=== PATIENT | female | born 1955 | race African-American/Black ===

== ENCOUNTER 2018-03-07 13:35 | Outpatient (CLI) | payer MEDICARE ==
--- NOTE | 2018-03-07 15:09 | RAD ---
LEFT KNEE 3 VIEWS: Date: 03/07/18 HISTORY: Left knee pain. FINDINGS: There is complete loss of joint space at the lateral compartment and patellofemoral compartment, and mild joint space loss at the medial compartment. Articular surface irregularity of the lateral compar tment. Prominent tricompartmental osteophytosis. Small amount of fluid distends the suprapatellar bur sa. No acute fracture or dislocation. IMPRESSION: Severe osteoarthritis left knee with small joint effusion. POS: [facility]
--- NOTE | 2018-03-07 15:10 | RAD ---
RIGHT HIP 2 VIEWS: Date: 03/07/18 HISTORY: Right hip pain. FINDINGS: Mild joint space narrowing, osteophytosis, and subchondral sclerosis. Enthesophytes from the greater trochanter. No acute fracture or dislocation. IMPRESSION: Mild osteoarthritic changes right hip. POS: [facility]
--- NOTE | 2018-03-07 15:18 | RAD ---
AP PELVIS 1 VIEW: Date: 03/07/18 HISTORY: Pelvic pain. FINDINGS: Degenerative changes of the hips, left greater than right, and lumbar spine are apparent. Sacral ala and pelvic rings are intact. Phleboliths project over the pelvis. 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 No acute osseous abnormalities are demonstrated. POS: [facility]
== END 2018-03-07 13:36 | disposition home or self-care (01) ==
LOC: SCSRAD 13:35
PROVIDERS: ATTEND Family Medicine
DX: M16.11 Unilateral primary osteoarthritis, right hip (principal); M17.12 Unilateral primary osteoarthritis, left knee; M47.896 Other spondylosis, lumbar region; M25.462 Effusion, left knee
CPT/HCPCS: 72170

== ENCOUNTER 2018-03-08 13:45 | Outpatient (CLI) | payer MEDICARE ==
--- NOTE | 2018-03-08 14:38 | ULT ---
Technique: Multiple longitudinal and transverse images of the left lower extremity venous system is o btained using a multihertz linear array transducer. Real-time, color flow, and spectral waveform dopp ler analysis was used to evaluate the left lower extremity. FINDINGS: No evidence of acute or old clot seen in the left common femoral, superficial femoral, femoral profun da, popliteal, post trifurcation veins, posterior tibial veins, or left greater saphenous vein. IMPRESSION: No evidence of left lower extremity deep venous thrombosis. POS: [facility]
== END 2018-03-08 13:46 | disposition home or self-care (01) ==
LOC: ULT 13:45
PROVIDERS: ATTEND Family Medicine
DX: M79.89 Other specified soft tissue disorders (principal); R79.1 Abnormal coagulation profile

== ENCOUNTER 2018-12-14 15:35 | Outpatient (CLI) | payer MEDICARE ==
--- NOTE | 2018-12-14 17:14 | ULT ---
VENOUS DUPLEX SONOGRAM RIGHT LOWER EXTREMITY 12/14/18 HISTORY: Right leg pain and edema. FINDINGS: The right common femoral vein and greater saphenous junction were evaluated along with the femoral, d eep femoral, popliteal, and posterior tibial veins. There is good color and spectral doppler flow, co mpression, and augmentation. IMPRESSION: No sonographic evidence of DVT within the right lower extremity. POS: [facility]
--- NOTE | 2018-12-14 17:19 | RAD ---
RIGHT KNEE FOUR VIEWS: HISTORY: Right knee pain. FINDINGS: Marked joint space loss medial compartment. Mild joint space loss lateral compartment. Prominent tr icompartment osteophytosis. Mild subchondral sclerosis. No acute fracture or dislocation. Minimal fluid distention of the suprapatellar bursa. IMPRESSION: Prominent osteoarthritic changes, right knee, with small joint effusion. Joint space narrowing most pronounced at the medial compartment. POS: [facility]
== END 2018-12-14 15:36 | disposition home or self-care (01) ==
LOC: ULT 15:35
PROVIDERS: ATTEND Physician Assistant
DX: M79.89 Other specified soft tissue disorders (principal); M17.11 Unilateral primary osteoarthritis, right knee; M25.461 Effusion, right knee

== ENCOUNTER 2018-12-19 14:18 | Outpatient (CLI) | payer MEDICARE | END 2018-12-19 14:19 | disposition home or self-care (01) | LOC: SCSMAMMO 14:18 | PROVIDERS: ATTEND Family Medicine | DX: Z12.31 Encounter for screening mammogram for malignant neoplasm of breast (principal); R92.1 Mammographic calcification found on diagnostic imaging of breast | CPT/HCPCS: 77063; 77067 ==

== ENCOUNTER 2022-12-16 11:22 | Outpatient (CLI) | payer MEDICARE, OTHER | END 2022-12-16 11:23 | disposition home or self-care (01) | LOC: BICMAMMO 11:22 | PROVIDERS: ATTEND Family Medicine | DX: Z12.31 Encounter for screening mammogram for malignant neoplasm of breast (principal); Z91.89 Other specified personal risk factors, not elsewhere classified | CPT/HCPCS: 77063; 77067 ==

== ENCOUNTER 2023-08-27 11:08 | Outpatient (CLI) | payer MEDICARE | END 2023-08-27 11:09 | disposition home or self-care (01) | LOC: BICCT 11:08 | PROVIDERS: ATTEND Internal Medicine Gastroenterology | DX: K21.9 Gastro-esophageal reflux disease without esophagitis (principal); K59.09 Other constipation; R13.19 Other dysphagia; R10.32 Left lower quadrant pain; M47.815 Spondylosis without myelopathy or radiculopathy, thoracolumbar region; M48.04 Spinal stenosis, thoracic region; Z86.010 Personal history of colon polyps | CPT/HCPCS: 74177; 82565 ==